=== PATIENT | female | born 1990 | race Caucasian/White ===

== ENCOUNTER 2020-11-05 09:21 | Emergency (ER) | payer SELFPAY ==
[2020-11-05 09:45] VITALS: BP 120/68; PULSE 104; RESP 16; TEMP 36.8; O2SAT 97; BMI 24.0
--- NOTE | 2020-11-05 10:27 | XR_ITS ---
WS: [id number] Exam: XR cervical spine 3V* [id number] Date/Time of Exam: 11/05/2020 10:29 AM Reason For Exam: neck pain No acute fracture or dislocation. There is side bending with left convexity that may represent tortic ollis. There is straightening. Paraspinal soft tissues appear normal. The odontoid is intact. XR/XR cervical spine 3V* [id number] IMPRESSION: 1. Side bending of the neck with left convexity that may represent torticollis. There is also straightening. 2. No fracture or malalignment noted.
[2020-11-05 10:29] VITALS: BP 119/84; PULSE 104; RESP 12; O2SAT 97
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
[2020-11-05 11:18] VITALS: BP 117/81; PULSE 99; RESP 12; O2SAT 96
== END 2020-11-05 11:20 | disposition home or self-care (01) ==
PROVIDERS: Emergency Provider Family Medicine
DX: M54.2 Cervicalgia (principal); V59.40XA Driver of pick-up truck or van injured in collision with unspecified motor vehicles in traffic accident, initial encounter
CPT/HCPCS: 72040; 99282